=== PATIENT | male | born 1950 | race Caucasian/White ===

== ENCOUNTER 2019-02-08 07:27 | Day surgery (SDC) | payer MEDICARE, OTHER ==
[~2019-02-08] VITALS: Ht 177.8 cm; Wt 75.5 kg
[~2019-02-08 07:27] MED LIST: LOSARTAN-HCTZ1 EACH; RXHYDACE PO
--- NOTE | 2019-02-08 10:05 | NUR ---
02/08/19 1005 Nicolette Hale LATE ENTRY: PT BP DROPPED TO MID 80S- LOW 90S UPON SEDATION. BACKED OFF ON PROPOFOL, DR NOTIFIED, NO ORDERS. PT MAINTAINING HIGH 80S- LOW 90S BP. BP DECREASED, SEE MED FLOW SHEET FOR ACTUAL BP. MEDICATION GIVEN PER ORDER, SEE MED FLOW SHEET. DR BLAKE ABORTED PROCEDURE D/T DIFFICULT COLON & LOW BP. PT WOKE UP, NO PROBLEMS, VSS. ORDERED BARIUM ENEMA D/T ABORTED PROCEDURE.
== END 2019-02-08 09:55 | disposition home or self-care (01) ==
LOC: ORSCSDS 07:27
PROVIDERS: Internal Medicine Gastroenterology
PROC: 0DJD8ZZ Inspection of Lower Intestinal Tract, Via Natural or Artificial Opening Endoscopic (ICD-10-PCS; principal; 2019-02-08 08:45)
DX: Z12.11 Encounter for screening for malignant neoplasm of colon (principal); K57.30 Diverticulosis of large intestine without perforation or abscess without bleeding; I10 Essential (primary) hypertension; F41.8 Other specified anxiety disorders; E78.5 Hyperlipidemia, unspecified; F17.210 Nicotine dependence, cigarettes, uncomplicated; Z79.899 Other long term (current) drug therapy
CPT/HCPCS: J2250; J2704; J7120

== ENCOUNTER 2019-06-11 08:56 | Emergency (ER) | payer MEDICARE, OTHER ==
[~2019-06-11] VITALS: Ht 180.3 cm; Wt 81.7 kg
[~2019-06-11 08:56] MED LIST changes: -LOSARTAN-HCTZ1 EACH; +LOSARTAN-HCTZ1 EACH PO
[2019-06-11 09:24] LABS: BASOPHILS ABSOLUTE AUTO 0.03 K/mm3 (0.00-0.23); BASOPHILS PERCENT AUTO 1 % (0-2); EOSINOPHILS ABSOLUTE AUTO 0.05 K/mm3 (0.00-0.68); EOSINOPHILS PERCENT AUTO 1 % (0-6); Hematocrit 41.9 % (37.0-53.0); Hemoglobin 14.2 g/dL (13.5-17.5); IMMATURE GRAN ABSOLUTE AUTO 0.02 K/mm3 (0.00-0.10); IMMATURE GRAN PERCENT AUTO 0 % (0-1); LYMPHOCYTES ABSOLUTE AUTO 1.49 K/mm3 (0.84-5.20); LYMPHOCYTES PERCENT AUTO 23 % (21-46); MONOCYTES ABSOLUTE AUTO 0.36 K/mm3 (0.16-1.47); MONOCYTES PERCENT AUTO 6 % (4-13); Mean Corpuscular HGB 30.9 pg (26.0-34.0); Mean Corpuscular HGB Conc 33.9 g/dL (31.5-36.5); Mean Corpuscular Volume 91 fL (80-100); Mean Platelet Volume 8.4 fL (9.1-12.4); NEUTROPHILS ABSOLUTE AUTO 4.63 K/mm3 (1.96-9.15); NEUTROPHILS PERCENT AUTO 70 % (41-73); Platelet Count 271 K/mm3 (150-400); RDW Coefficient Variation 12.4 % (11.7-14.2); RDW Standard Deviation 41.3 fL (35.1-46.3); White Blood Cell Count 6.58 K/mm3 (4.00-11.30)
[2019-06-11 09:42] LABS: Alanine Aminotransfer (ALT/SGP 23 U/L (12-78); Albumin, Blood 3.4 g/dL (3.4-5.0); Albumin/Globulin Ratio 0.9 (0.8-1.8); Alk Phos 74 U/L (50-136); Anion Gap 8 mmol/L (6-16); Aspartate Aminotrans (AST/SGOT 26 U/L (12-37); Bilirubin, Total 0.3 mg/dL (0.1-1.0); Blood Urea Nitrogen 22 mg/dL (8-24); Bun/Creatinine Ratio 23.5 (12.0-20.0); CO2, Blood 25 mmol/L (21-32); Calcium, Blood 8.8 mg/dL (8.5-10.1); Chloride, Blood 106 mmol/L (98-108); Creatinine, Blood 0.94 mg/dL (0.60-1.20); Globulin, Blood 3.6 g/dL (2.2-4.0); Glomerular Filtration Rate >60 (60-); Glucose, Blood 126 mg/dL (70-99); Potassium, Blood 3.9 mmol/L (3.5-5.5); Sodium, Blood 139 mmol/L (136-145)
[2019-06-11] MEDS ORDERED: MOTION RELIEF25 MG PO (10:43)
== END 2019-06-11 10:58 | disposition home or self-care (01) ==
LOC: ER 08:56
PROVIDERS: Emergency Medicine
DX: R42 Dizziness and giddiness (principal); I10 Essential (primary) hypertension; F41.9 Anxiety disorder, unspecified; F17.200 Nicotine dependence, unspecified, uncomplicated; Z79.899 Other long term (current) drug therapy
CPT/HCPCS: 36415; 80053; 85025; 93005; 93010; 96374; 99284-25; J2550

== ENCOUNTER 2022-07-23 09:01 | Emergency (ER) | payer MEDICARE ==
[~2022-07-23] VITALS: Ht 177.8 cm; Wt 77.1 kg
[~2022-07-23 09:01] MED LIST changes: +MOTION RELIEF25 MG PO
[2022-07-23] MEDS ORDERED: Percocet 5-3251 EACH PO (11:10)
[2022-07-23] MEDS ORDERED: CYCL10 PO ×2 (11:10→14:34)
== END 2022-07-23 11:41 | disposition home or self-care (01) ==
LOC: ER 09:01
DX: S20.212A Contusion of left front wall of thorax, initial encounter (principal); I10 Essential (primary) hypertension; F17.290 Nicotine dependence, other tobacco product, uncomplicated; W17.89XA Other fall from one level to another, initial encounter
CPT/HCPCS: 71046; A9270